=== PATIENT | female | born 1990 | race Native Hawaiian/Other Pacific Islander ===

== ENCOUNTER 2017-09-24 11:25 | Emergency (ER) | payer OTHER ==
[~2017-09-24] VITALS: Ht 152.4 cm; Wt 45.4 kg
[2017-09-24] MEDS ORDERED: ACETAMINOPHEN ES 500 MG TABLET ONE (11:42)
[2017-09-24] MEDS ORDERED: IBUPROFEN 600 MG TABLET ONE (11:43)
[2017-09-24] MEDS ORDERED: IBUPROFEN 600 MG TABLET PO ONE (11:45)
[2017-09-24] MEDS ORDERED: ACETAMINOPHEN 650 MG/20.3 ML LIQUID UDC PO ONE (11:45)
[2017-09-24 12:27] LABS: *URINE HCG, QUAL NEGATIVE (NEGATIVE)
--- NOTE | 2017-09-24 13:17 | NUR ---
More po fluids provided. Patient is drinking well, pending resulst & [email or web address] [email or web address].
[2017-09-24] MEDS ORDERED: AZITHROMYCIN 250 MG TABLET PO ONE (13:30)
[2017-09-24] MEDS ORDERED: predniSONE 20 MG TABLET PO ONE (13:30)
[2017-09-24] MEDS ORDERED: AZITHROMYCIN 250 MG TABLET ONE (13:38)
[2017-09-24] MEDS ORDERED: predniSONE 20 MG TABLET ONE (13:38)
--- NOTE | 2017-09-24 13:49 | NUR ---
Patient discharged to home in stable conditon. Written and verbal after care instructions given to patient and boyfriend. Patient and significant other verbalized understanding of instructions.
== END 2017-09-24 13:51 | disposition home or self-care (01) ==
LOC: ER 11:25
DX: J40 Bronchitis, not specified as acute or chronic (principal); R50.9 Fever, unspecified; E86.9 Volume depletion, unspecified
CPT/HCPCS: 36415; 71045; 84703; 86403; 87070; 87400; A4663; A9150; J7512; Q0144